=== PATIENT | male | born 1940 | race Caucasian/White ===

== ENCOUNTER 2017-01-09 19:52 | Observation (INO) | payer MEDICARE ==
[~2017-01-09] VITALS: Ht 177.8 cm; Wt 79.3 kg
[~2017-01-09 19:52] MED LIST: AMLO5TAB2 PO; ASPI-496 PO; HYDR12.58 PO; LISI-167 PO; SIMV10TA3 PO
[2017-01-09] MEDS ORDERED: ONDANSETRON 2MG/ML, 2ML ONE ×2 (20:16→20:29)
[2017-01-09] MEDS ORDERED: MORPHINE SULFATE 4 MG/ML, 1ML ONE ×3 (20:16→21:52)
[2017-01-09] MEDS: MORPHINE SULFATE 4 MG/ML, 1ML IVPush PRN ×2 (20:20→21:53)
[2017-01-09] MEDS ORDERED: SODIUM CHLORIDE FLUSH 10ML SYR IVF ONE (20:30)
[2017-01-09] MEDS ORDERED: SODIUM CHLORIDE 0.9% 1,000ML IVBOLUS ONE (20:30)
[2017-01-09] MEDS ORDERED: ONDANSETRON 2MG/ML, 2ML IVPush ONE (20:30)
[2017-01-09 20:44] LABS: BLOOD UREA NITROGEN 5 mg/dL (7-18)
[2017-01-09] MEDS ORDERED: SODIUM CHLORIDE FLUSH 10ML SYR IVF PRN (22:30)
[2017-01-09] MEDS ORDERED: HYDROCHLOROTHIAZIDE 12.5 MG CAPSULE PO SCH (23:30)
[2017-01-09] MEDS ORDERED: NITROGLYCERIN 0.4 MG BOTTLE (25 TABS) SL PRN (23:30)
[2017-01-09] MEDS ORDERED: TEMAZEPAM 15 MG CAPSULE PO PRN (23:30)
[2017-01-09] MEDS ORDERED: LABETALOL 5MG/ML, 20ML IVPush PRN (23:30)
[2017-01-09] MEDS ORDERED: LISINOPRIL 10 MG TABLET PO SCH (23:30)
[2017-01-09] MEDS ORDERED: AMLODIPINE 5 MG TABLET PO SCH (23:30)
[2017-01-09 23:36] VITALS: BP 92/59
[2017-01-09] MEDS ORDERED: HCTZ MC SCH (23:45)
[2017-01-09] MEDS ORDERED: NORVASC MC SCH (23:45)
[2017-01-09] MEDS ORDERED: [UNRECOGNIZED DRUG - OTHER] MC SCH (23:45)
[2017-01-09] MEDS: AMLODIPINE MC SCH (23:52)
[2017-01-09] MEDS: HYDROCHLOROTHIAZIDE MC SCH (23:52)
[2017-01-09] MEDS: LISINOPRIL MC SCH (23:52)
[2017-01-10] MEDS ORDERED: LORazepam 0.5MG TABLET PO PRN
[2017-01-10] MEDS ORDERED: LORazepam 1MG TABLET PO PRN ×4
[2017-01-10] MEDS: HEPARIN 5,000 UNITS/ML, 1ML SQ SCH ×2 (00:52→08:45)
[2017-01-10 01:15] VITALS: BP 92/57
[2017-01-10] MEDS: SODIUM CHLORIDE 0.9% 1,000 ML IV SCH ×2 (01:52→08:47)
[2017-01-10] MEDS ORDERED: OMNIPAQUE 350 MG/ML, 100ML BOTTLE ONE (02:32)
[2017-01-10 02:48] LABS: IS PT STATUS REG ER OR PRE ER? NO
[2017-01-10 07:50] VITALS: BP 111/72
[2017-01-10] MEDS: LISINOPRIL MC SCH (07:52)
[2017-01-10] MEDS: AMLODIPINE MC SCH (07:52)
[2017-01-10] MEDS: HYDROCHLOROTHIAZIDE MC SCH (07:52)
[2017-01-10 08:18] LABS: IS PT STATUS REG ER OR PRE ER? NO
[2017-01-10] MEDS ORDERED: REGADENOSON 0.4 MG/5 ML SYRINGE ONE (08:54)
[2017-01-10] MEDS ORDERED: ASPIRIN 81 MG TABLET EC PO SCH (09:00)
[2017-01-10] MEDS ORDERED: SIMVASTATIN 10 MG TABLET PO SCH (21:00)
[2017-01-11] MEDS ORDERED: LISINOPRIL 10 MG TABLET PO SCH (09:00)
[2017-01-11] MEDS ORDERED: AMLODIPINE 5 MG TABLET PO SCH (09:00)
[2017-01-11] MEDS ORDERED: HYDROCHLOROTHIAZIDE 12.5 MG CAPSULE PO SCH (09:00)
== END 2017-01-10 14:07 | disposition home or self-care (01) ==
LOC: ED 21:54 → EDIP 22:54 → INTOOBSV 22:54 → 5SO 23:08 → UNDODISIN 01-10 14:07
PROVIDERS: ADMIT Internal Medicine; ATTEND Internal Medicine
DX: R07.2 Precordial pain (principal); E87.1 Hypo-osmolality and hyponatremia; E87.6 Hypokalemia; F10.20 Alcohol dependence, uncomplicated; E44.1 Mild protein-calorie malnutrition; E78.5 Hyperlipidemia, unspecified; I11.9 Hypertensive heart disease without heart failure; I25.2 Old myocardial infarction; Z80.0 Family history of malignant neoplasm of digestive organs; Z96.641 Presence of right artificial hip joint; Z79.82 Long term (current) use of aspirin
CPT/HCPCS: 36415; 71010; 71275; 78452; 80048; 82040; 83735; 83880; 84439; 84443; 84484; 85025; 93005; 93017; 93306; 96361; 96372; 96374; 96375; 96376; 99285; A9502; C9898; G0378; J1644; J2405; J2785; J7030; Q9967

== ENCOUNTER 2017-08-07 19:58 | Emergency (ER) | payer MEDICARE ==
[~2017-08-07] VITALS: Ht 177.8 cm; Wt 80.0 kg
[2017-08-07] MEDS ORDERED: METHOCARBAMOL 750 MG TABLET ONE (20:53)
[2017-08-07] MEDS ORDERED: METHOCARBAMOL 750 MG TABLET PO ONE (21:00)
[2017-08-07] MEDS ORDERED: SODIUM CHLORIDE FLUSH 10ML SYR IVF ONE (21:00)
[2017-08-07] MEDS ORDERED: POTASSIUM CHLORIDE 20 MEQ TAB.ER.PRT ONE (21:59)
[2017-08-07] MEDS ORDERED: POTASSIUM CHLORIDE 20 MEQ TAB.ER.PRT PO ONE (22:00)
[2017-08-07 22:03] VITALS: BP 102/64
[2017-08-08] MEDS ORDERED: OMNIPAQUE 350 MG/ML, 100ML BOTTLE ONE (05:25)
== END 2017-08-07 22:40 | disposition home or self-care (01) ==
LOC: ED 22:35
DX: S29.012A Strain of muscle and tendon of back wall of thorax, initial encounter (principal); K21.9 Gastro-esophageal reflux disease without esophagitis; I10 Essential (primary) hypertension; E87.6 Hypokalemia; I48.91 Unspecified atrial fibrillation; X58.XXXA Exposure to other specified factors, initial encounter; Y93.89 Activity, other specified; Y99.8 Other external cause status; Y92.89 Other specified places as the place of occurrence of the external cause
CPT/HCPCS: 36415; 71275; 74175; 80047; 93005; 99285; Q9967

== ENCOUNTER 2018-10-18 18:50 | Emergency (ER) | payer MEDICARE ==
[~2018-10-18] VITALS: Ht 172.7 cm; Wt 80.0 kg
[~2018-10-18 18:50] MED LIST changes: +AMLO-150 PO; -AMLO5TAB2 PO; -HYDR12.58 PO; +HYDROCHLOROTH12.5 MG PO
[2018-10-18 18:54] VITALS: BP 106/71
[2018-10-18] MEDS ORDERED: KETOROLAC 30 MG/1 ML ONE (20:12)
[2018-10-18] MEDS ORDERED: KETOROLAC 30 MG/1 ML IM ONE (20:30)
== END 2018-10-18 20:33 | disposition home or self-care (01) ==
LOC: ED 20:27
DX: M25.552 Pain in left hip (principal); I25.2 Old myocardial infarction; K21.9 Gastro-esophageal reflux disease without esophagitis
CPT/HCPCS: 73502; 96372; 99283; J1885

== ENCOUNTER 2021-01-19 18:37 | Emergency (ER) | payer MEDICARE ==
[~2021-01-19] VITALS: Ht 172.7 cm; Wt 72.7 kg
[~2021-01-19 18:37] MED LIST changes: +SIMV10TA18 PO; -SIMV10TA3 PO
--- NOTE | 2021-01-19 18:43 | NUR ---
BIB EMS FROM HOME FOR C/O SOB, LETHARGIC, INCREASED TIREDNESS, INCREASED WOB, AND INCREASED LEG SWELLING (RLE 1+ PITTING EDEMA, LLE TRACE EDEMA). PT SPEAKING IN 6-7 WORD SENTENCES. ACCESSORY MUSCLES NOTED TO BE IN USE WHEN PT BREATHING. ETCO2 PER EMS WAS 15-20. PT HAS A LOT OF STRESS IN HIS LIFE LATELY. DENIES SI/HI. PER EMS RR 25-30, 96% RA, BS 66. MONITORS APPLIED. EKG COMPLETED. WARM BLANKET PROVIDED. CALL LIGHT IN REACH.
--- NOTE | 2021-01-19 19:04 | NUR ---
ERP DR. TOBIN AT BEDSIDE FOR EVAL.
--- NOTE | 2021-01-19 19:18 | NUR ---
PT RESTING ON GURNEY. NADN. REN.
[2021-01-19 19:44] LABS: BASOPHILS % (AUTO) 1 % (0-1); EOSINOPHILS % (AUTO) 1 % (1-7); LYMPHOCYTES % (AUTO) 32 % (22-44); MEAN CORPUSCULAR HGB CONC 33.9 g/dL (33.2-36.2); MEAN PLATELET VOLUME 7.6 fL (7.4-10.4); MONOCYTES % (AUTO) 12 % (2-9); NEUTROPHILS % (AUTO) 55 % (42-75); PLATELET COUNT 130 x10^3/uL (130-400); RED BLOOD COUNT 3.83 x10^6/uL (4.38-5.82); RED CELL DISTRIBUTION WIDTH 13.7 % (9.4-14.8)
[2021-01-19 19:50] LABS: ALANINE AMINOTRANSFERASE 39 U/L (12-78); ANION GAP 17 mmol/L (5-15); CALCIUM 8.1 mg/dL (8.5-10.1); CHLORIDE 105 mmol/L (98-107); CREATININE 0.65 mg/dL (0.7-1.3)
[2021-01-19 19:54] LABS: ALKALINE PHOSPHATASE 52 U/L (45-117); BILIRUBIN,TOTAL 1.2 mg/dL (0.2-1.0); TROPONIN I < 0.015 ng/mL (0.000-0.045)
[2021-01-19 20:10] VITALS: BP 129/80
--- NOTE | 2021-01-19 20:10 | NUR ---
PT SITTING AT EDGE OF BED MAKING STATEMENTS "I WANT TO LEAVE. I WANT TO GO HOME. I DON'T WANT TO BE HERE ANYMORE". DISCUSSED W/ PT ER PROCESS. PT VERBALIZES UNDERSTANDING. DISCUSSED W/ PT RISKS OF LEAVING AMA AT THIS TIME. PT STATES HE UNDERSTANDS. DISCUSSED TO WAIT TO SPEAK W/ ERP AND PT STATES HE WILL WAIT TO SPEAK W/ ERP. ERP DR. TOBIN NOTIFIED.
--- NOTE | 2021-01-19 20:24 | NUR ---
SPOKE W/ ERP DR. TOBIN IN REGARDS TO D-DIMER TEST. PER ERP NO NEED FOR D-DIMER AT THIS TIME.
--- NOTE | 2021-01-19 20:29 | NUR ---
ERP DR. TOBIN AT BEDSIDE FOR RE-EVAL.
--- NOTE | 2021-01-19 20:43 | NUR ---
PT STATES SOB RESOLVED UPON ARRIVAL TO ED AND PT WANTS TO LEAVE AMA. ERP DR. TOBIN AWARE AND SPOKE W/ PT IN REGARDS TO RISKS OF LEAVING. PT VERBALIZES UNDERSTANDING. AMA PAPERWORK SIGNED BY PT AND THIS RN. PT PROVIDED W/ CARBON COPY. AWAITING SHIRT ARRIVAL FROM [facility] FOR [place].
== END 2021-01-19 20:59 | disposition left against medical advice (07) ==
LOC: ED 20:37
DX: R06.00 Dyspnea, unspecified (principal); R94.31 Abnormal electrocardiogram [ECG] [EKG]; I10 Essential (primary) hypertension; K21.9 Gastro-esophageal reflux disease without esophagitis; J45.909 Unspecified asthma, uncomplicated
CPT/HCPCS: 36415; 71045; 80053; 83880; 84484; 85025; 93005; 99285